=== PATIENT | male | born 1990 | race Caucasian/White ===

== ENCOUNTER 2017-12-23 16:26 | Emergency (ER) | payer BC ==
[~2017-12-23] VITALS: Ht 172.7 cm; Wt 172.0 kg
[~2017-12-23 16:26] MED LIST: BACTRIM,SEPT1 TABLET PO; KEFLEX500 MG PO; ULTRAM50 MG PO
[2017-12-23 17:12] LABS: HEMATOCRIT 44.7 % (38.0-50.0); HEMOGLOBIN 14.8 G/DL (12.5-16.6); MCH 26.9 PG (29.0-34.0); MCHC 33.1 G/DL (30.0-36.0); MCV 81.1 FL (86-99); PLATELET COUNT 430 K/uL (156-360); RBC DIS.WIDTH-CV 14.5 % (11.8-14.6); RBC DIS.WIDTH-SD 42.4 % (39-53); RED BLOOD COUNT 5.51 M/uL (4.00-5.50); WHITE BLOOD COUNT 14.6 K/uL (4.1-10.2)
[2017-12-23 17:21] LABS: CHLORIDE 101 mEq/L (99-109); POTASSIUM 4.5 mEq/L (3.7-5.4); SODIUM 137 mEq/L (136-147)
[2017-12-23 17:23] LABS: GLUCOSE 98 mg/dL (70-99)
[2017-12-23 17:27] LABS: CREATININE 0.8 mg/dL (0.6-1.3); GFR ESTIMATE (CALCULATED) > 59 mL/min/ (58.99-99999)
[2017-12-23 17:28] LABS: UREA NITROGEN (BUN) 14 mg/dL (9-23)
[2017-12-23 17:33] LABS: TROP-I INTERPRETATION NEGATIVE; TROPONIN-I < 0.01 ng/mL (0.0-0.30)
[2017-12-23 18:01] LABS: THYROTROPIN (TSH) 2.8 MIU/L (0.4-5.5)
[2017-12-23] MEDS ORDERED: KEFLEX500 MG PO (20:04)
[2017-12-23] MEDS ORDERED: BACTRIM,SEPT1 TABLET PO (20:04)
[2017-12-23 20:25] VITALS: BP 141/79
== END 2017-12-23 20:29 | disposition home or self-care (01) ==
LOC: EME 16:26
PROVIDERS: Nurse Practitioner Family
DX: L03.115 Cellulitis of right lower limb (principal); R00.0 Tachycardia, unspecified; D72.829 Elevated white blood cell count, unspecified; E11.9 Type 2 diabetes mellitus without complications; I10 Essential (primary) hypertension; Z87.891 Personal history of nicotine dependence; Z88.8 Allergy status to other drugs, medicaments and biological substances; Z68.43 Body mass index [BMI] 50.0-59.9, adult
CPT/HCPCS: 80048; 83605; 84443; 84484; 85027; 87040; 93005; 99281; 99284; J7030; J7120